=== PATIENT | female | born 1970 | race Caucasian/White ===

== ENCOUNTER 2017-02-15 07:56 | Observation (INO) | payer OTHER ==
--- NOTE | ~2017-02-15 | EKG ---
PATIENT: JIAN GONZALEZ UNIT #: [id number] Ventricular Rate: 222 BPM Atrial Rate: 221 BPM QRS Duration: 70 ms Q-T Interval: 196 ms QTC Calculation(Bezet): 376 ms Calculated R [place]: 84 degrees Calculated T [place]: -115 degrees Diagnosis Line: Supraventricular tachycardia Diagnosis Line: Marked ST abnormality, possible inferior Diagnosis Line: subendocardial injury Diagnosis Line: Marked ST abnormality, possible anterolateral Diagnosis Line: subendocardial injury Diagnosis Line: Abnormal ECG Diagnosis Line: When compared with ECG of 29-JUL-2016 09:07, Diagnosis Line: Vent. rate has increased BY 135 BPM Diagnosis Line: ST now depressed in Inferior leads Diagnosis Line: ST now depressed in Anterolateral leads Diagnosis Line: T wave inversion now evident in Inferior leads Diagnosis Line: T wave inversion now evident in Anterolateral Diagnosis Line: leads Diagnosis Line: Confirmed by LIBERTAD PAUL MD ([id number]) on 02/15/2017 Diagnosis Line: 10:16:23 PM INTERPRETING MD: HUMBERTO BLAIR
--- NOTE | ~2017-02-15 | EKG ---
PATIENT: JIAN GONZALEZ UNIT #: [id number] Ventricular Rate: 93 BPM Atrial Rate: 93 BPM P-R Interval: 158 ms QRS Duration: 82 ms Q-T Interval: 354 ms QTC Calculation(Bezet): 440 ms P [place]: 67 degrees Calculated R [place]: 68 degrees Calculated T [place]: 53 degrees Diagnosis Line: Normal sinus rhythm Diagnosis Line: Nonspecific ST abnormality Diagnosis Line: Abnormal ECG Diagnosis Line: No previous ECGs available Diagnosis Line: Confirmed by LIBERTAD PAUL MD ([id number]) on 02/15/2017 Diagnosis Line: 10:16:37 PM INTERPRETING MD: HUMBERTO BLAIR
--- NOTE | ~2017-02-15 | EKG ---
PATIENT: JIAN GONZALEZ UNIT #: [id number] Ventricular Rate: 72 BPM Atrial Rate: 72 BPM P-R Interval: 172 ms QRS Duration: 82 ms Q-T Interval: 370 ms QTC Calculation(Bezet): 405 ms P [place]: 42 degrees Calculated R [place]: 57 degrees Calculated T [place]: 31 degrees Diagnosis Line: Normal sinus rhythm Diagnosis Line: Normal ECG Diagnosis Line: When compared with ECG of 15-FEB-2017 06:25, Diagnosis Line: (unconfirmed) Diagnosis Line: ST no longer depressed in Anterior leads Diagnosis Line: Confirmed by LIBERTAD PAUL MD ([id number]) on 02/15/2017 Diagnosis Line: 10:29:31 PM INTERPRETING MD: HUMBERTO BLAIR
--- NOTE | ~2017-02-15 | TH ---
Unit #: [id number] #: [id number] Patient: JIAN GONZALEZ [id number] [address] [address] [id number] I MR#: [id number] NAME: JIAN GONZALEZ : 1970 SEX: F STUDY DATE/TIME: UNIT: C3A PCU ROOM: [facility] STUDY DESCRIPTION: Nuclear Study Attending Physician: Samantha Harris M.D. Primary Care Physician: Erica Longoria M.D. CARDIOLOGY REPORT EXAM Exercise Cardiolite Stress Test - Nuclear Portion DESCRIPTION Using technetium 99m labeled Cardiolite, rest and stress SPECT images were obtained. Multiple SPECT images were obtained in various views including horizontal and vertical long axis and short axis views of the left ventricle. Images were obtained by gated SPECT method. The patient was administered 11.07 mCi of Cardiolite at rest. The patient was administered 35.6 mCi of Cardiolite at peak exercise. Total exercise time is 6 minutes 18 seconds. On the stress images, there is an extremely small area of mild decreased isotope activity anteroapically. The rest images show normal perfusion. Comparing rest and stress images, an extremely small area of possible stress-induced ischemia involving the anteroapical wall of the left ventricle cannot be ruled out. The left ventricular ejection fraction is calculated to be 69%. There is no focal wall motion abnormality seen. CONCLUSION 1. An extremely small area of possible stress-induced ischemia involving the anteroapical wall of the left ventricle cannot be ruled out. 2. The left ventricular ejection fraction is calculated to be 69%. 3. There is no focal wall motion abnormality seen. 4. If the patient has any symptoms, will consider cardiac catheterization. Dictated by... Julius Rachel TD: 02/17/2017 06:14 JOB #: [id number] Unit #: [id number] #: [id number] Patient: JIAN GONZALEZ CARDIOLOGY REPORT Page 1 of 1 X Samantha Harris MD <ELECTRONICALLY SIGNED> 05/28/17 1429 CARDIOLOGY REPORT
--- NOTE | ~2017-02-15 | HP ---
Unit #: [id number] #: [id number] Patient: JIAN GONZALEZ [id number] [address] [place], [place] [address] [id number] I MR#: [id number] NAME: JIAN GONZALEZ ROOM: 325 Age: 46 Sex: F Admission Date: 02/15/2017 : 1970 Attending Physician: Samantha Harris M.D. Primary Care Physician: Erica Longoria M.D. HISTORY AND PHYSICAL HISTORY OF PRESENT ILLNESS This is a 46-year-old female who presented to the emergency room with a complaint of chest pain and palpitations. The patient states that she awakened this morning with a fast heart rate. She had left anterior chest pain with heaviness that radiated into her shoulder and into her mid back. She was positive for shortness of breath. No diaphoresis or nausea. She came into the emergency room for evaluation where she was found to be in supraventricular tachycardia with a rate of 222 beats/minute. She was treated with 6 mg of Adenosine, followed by a 12 mg dose that converted her to normal sinus rhythm. Later in the morning, she developed another episode of SVT that was terminated using 12 mg of adenosine. She was hypokalemic with potassium of 3.3. According to the patient, she has had episodes of palpitations that has occurred off and on for awhile. According to the emergency room record she was here on 07/29/2017 and had an episode of SVT that was treated with adenosine. The patient was discharged home. She also had an episode in 2013. She was seen by Dr. Gray in 2012 for the same. At that time she was on adenosine. She had a Lexiscan Cardiolite stress test at that time that was normal. She has not since followed with cardiology. She reports chest pain that mostly occurs when she is doing her housework. It does relieve after an hour of rest. PAST MEDICAL HISTORY 1. Lexiscan Cardiolite stress test 04/10/2013 and showed no ischemia. Ejection fraction of 67%. 2. 2D echocardiogram 04/07/2013 showed an ejection fraction equal or greater than 55% with mild tricuspid regurgitation. 3. Paroxysmal supraventricular tachycardia. 4. Hyperlipidemia. 5. GERD. 6. Anxiety. 7. Questionable history of TIA. 8. Nonsmoker. PAST SURGICAL HISTORY Tubal ligation. SOCIAL HISTORY The patient is and is a housewife. She has never smoked. She denies illicit drug and alcohol use. FAMILY HISTORY Negative for coronary artery disease. Unit #: [id number] #: [id number] Patient: JIAN GONZAELZ ALLERGIES Penicillin. HOME MEDICATIONS Zantac 75 mg daily. REVIEW OF SYSTEMS CONSTITUTIONAL: Negative for fever or chills. Reports no weight gain or weight loss. HEENT: No headache and no visual changes. Difficulty with swallowing. No dizziness. CARDIOVASCULAR: Positive for chest pain and palpitations. Denies syncope and near syncope. No paroxysmal nocturnal dyspnea or orthopnea. RESPIRATORY: Has occasional dyspnea on exertion. No cough or hemoptysis. GASTROINTESTINAL: Negative for abdominal discomfort, nausea, or vomiting. No constipation. EXTREMITIES: Negative for all extremities. PHYSICAL EXAMINATION VITAL SIGNS: Blood pressure 118/71, heart rate 76, temperature 98.5, BMI 29. GENERAL: This is a very pleasant 46-year-old female who is in no acute respiratory distress. NEUROLOGIC: She is awake, alert and oriented. There is no focal weaknesses. NECK: Trachea is midline. No thyromegaly or lymphadenopathy. No jugular venous distention. HEART: S1 and S2 heart sounds are normal. No murmurs, no rubs, or clicks. Regular rate and rhythm. LUNGS: Clear to auscultation. There is no rales, rhonchi or wheezing. ABDOMEN: Soft, nontender with bowel sounds present. EXTREMITIES: Without leg edema. SKIN: Warm and dry. DIAGNOSTIC STUDIES LABORATORY STUDIES: Glucose 147, BUN 18, creatinine 0.7, sodium 140, potassium 3.3, magnesium is 1.8. CK total 65, MB 1.7, MB index 2.6. Troponin less than 0.05 to 0.22. TSH 0.82. White count 7.8, hemoglobin 12.8, hematocrit 38.8, platelet count is 270. IMAGING STUDIES: Chest x-ray shows no active disease. CARDIOVASCULAR STUDIES: Presenting electrocardiogram shows supraventricular tachycardia with a rate of [address] depression. Repeat electrocardiogram - normal sinus rhythm with a rate of [address] wave abnormality. IMPRESSION 1. Paroxysmal supraventricular tachycardia. 2. Hyperlipidemia. 3. Preserved left ventricular systolic function with ejection fraction of greater than 55%. 4. Hypokalemia. 5. Atypical chest pain. PLAN Unit #: [id number] #: [id number] Patient: JIAN GONZALEZ 1. The patient's PSVT has converted to normal sinus rhythm with use of adenosine. Will start the patient on beta-andriy for heart rate control. 2. Start on aspirin. 3. Obtain 2D echocardiogram to evaluate left ventricular systolic function. 4. Chest pain is atypical for ischemic heart disease. Will proceed with exercise Cardiolite stress test in a.m. to rule out coronary artery disease. 5. TSH is normal. 6. Fasting lipid profile will be obtained. Dictated by Liset HennessyPDeeRLeroy for Julius Rachel/mela TD: 02/16/2017 06:29 JOB #: [id number] CC: [facility], [facility]. HISTORY AND PHYSICAL Page 1 of 1 X Tariq Linder APRN X HISTORY AND PHYSICAL
--- NOTE | ~2017-02-15 | CR72 ---
[facility]. [facility] A Service of [facility] & [facility] RADIOLOGY TEXT RESULTS PATIENT: JIAN GONZALEZ LOCATION: [facility] 325-01 : [birth year] UNIT #: [id number] AGE: [address]: Samantha Harris MD SEX: F ORDER DR: [id number] [facility] [address] [facility]. [place], [place] [address] [id number] P MR#: [id number] Acc #: [id number] NAME: JIAN GONZALEZ : 1970 SEX: F STUDY DATE/TIME: 02/15/2017 6:34 UNIT: [facility] ROOM: STUDY DESCRIPTION: CR Chest Single View Portable Attending Physician: Sedrick Mcfarland M.D. Ordering Physician: Sedrick Mcfarland M.D. Primary Care Physician: Erica Longoria M.D. MEDICAL IMAGING REPORT This report is preliminary unless electronic signature is present EXAM Portable chest. HISTORY Chest pain. Heart racing for one day. FINDINGS Portable view of the chest was obtained and compared with 07/29/2016. The heart size and vascularity are normal. The lungs are clear. The bones are unremarkable. IMPRESSION No active disease. Dictated by... Ernst Waller M.D. THIS IS AN ELECTRONICALLY VERIFIED REPORT Ernst Waller M.D. at 02/15/2017 11:44 AM [place] TD: 02/15/2017 07:51 JOB #: [id number] MEDICAL IMAGING REPORT Page 1 of 1 COPY
--- NOTE | ~2017-02-15 | ST ---
Unit #: [id number] #: [id number] Patient: JIAN GONZALEZ [id number] [address] [address] [id number] I MR#: [id number] NAME: JIAN GONZALEZ : 1970 SEX: F STUDY DATE/TIME: 02/16/2017 UNIT: C3A PCU ROOM: [address] [place] [address] DESCRIPTION: Stress Test Attending Physician: Samantha Harris M.D. Primary Care Physician: Erica Longoria M.D. CARDIOLOGY REPORT All information was obtained via farm mechanic apprentice who was present during the entire test, nuclear imaging farm mechanic apprentice, who was able to speak [place]an. REASON FOR TESTING Palpitations, chest pain. DESCRIPTION Baseline EKG shows normal sinus rhythm, rate of 70 beats per minute. The patient exercised on the treadmill according to Girma protocol for a total of 6 minutes 18 seconds achieving 7.20 METs with a resting heart rate of 70 beats per minute and a peak heart rate of 146 beats per minute representing 84% of the maximum predicted heart rate. There were no ST segment changes suggestive of ischemia. At peak exercise, the patient did complain of left sided chest tightness and heaviness rated at approximately a 6 and increasing shortness of breath. This was increased in intensity. Therefore, the test was stopped. There was no ectopy noted during the test. IMPRESSION 1. Negative EKG portion of exercise Cardiolite. 2. No ST segment changes suggestive of ischemia. 3. However, the patient did experience, at peak exertion, left sided chest pain which was increasing in intensity, rated as a 6 out of 10, with some radiation into her left shoulder as well as worsening shortness of breath. The test was stopped secondary to this reason. The patient reports this pain was the pain that brought her in to the hospital; the same pain. The patient was sat down in the chart. No intervention was needed and she was chest pain free approximately three to four minutes into the recovery period. 4. The patient had a normal blood pressure response to exercise. Resting blood pressure was 113/72, marco antonio to a maximum blood pressure of 190/80. 5. Please correlate with nuclear imaging. Dictated by... Jennifer Gomez A.P.R.N. for Samantha Harris M.D. Unit #: [id number] #: [id number] Patient: GONZALEZJIAN WALLACE/cornelia TD: 02/17/2017 06:06 JOB #: [id number] CARDIOLOGY REPORT Page 1 of 1 X Jennifer Gomez APRN CARDIOLOGY REPORT
--- NOTE | ~2017-02-15 | HP ---
Unit #: [id number] #: [id number] Patient: JIAN GONZALEZ [id number] [address] [place], [place] [address] [id number] I MR#: [id number] NAME: JIAN GONZALEZ ROOM: 325 Age: 46 Sex: F Admission Date: 02/15/2017 : 1970 Attending Physician: Samantha Harris M.D. Primary Care Physician: Erica Longoria M.D. HISTORY AND PHYSICAL ADDENDUM The patient was admitted for chest pain. She underwent exercise Cardiolite stress testing today. This was reviewed per Dr. Harris and the patient's nuclear images show no evidence of exercise induced ischemia. Per Dr. Harris, the patient was deemed okay to discharge home today. She was advised to follow up with her primary care physician in one to two weeks. She will follow up with Dr. Harris in the office on April the at 12:30 p.m. The patient did have some medication changes. She will be sent home with baby aspirin, atorvastatin 10 mg p.o. q.h.s. and her metoprolol will be changed to 50 mg one tab p.o. b.i.d. The patient was educated the importance of lifestyle modification, diet and exercise, as well as the fact that if she continues to have any chest pain she needs to notify Dr. Harris's office. The next step would be proceeding with cardiac catheterization. This was all explained to the patient via parts interpreter phone and the patient verbalized understanding. Dictated by Denny Mora/valery TD: 02/16/2017 14:01 JOB #: [id number] HISTORY AND PHYSICAL Page 1 of 1 X Jennifer Gomez APRN X HISTORY AND PHYSICAL
--- NOTE | ~2017-02-15 | EKG ---
PATIENT: JIAN GONZALEZ UNIT #: [id number] Ventricular Rate: 76 BPM Atrial Rate: 76 BPM P-R Interval: 176 ms QRS Duration: 80 ms Q-T Interval: 386 ms QTC Calculation(Bezet): 434 ms P [place]: 37 degrees Calculated R [place]: 52 degrees Calculated T [place]: 23 degrees Diagnosis Line: Normal sinus rhythm Diagnosis Line: Normal ECG Diagnosis Line: When compared with ECG of 15-FEB-2017 13:49, Diagnosis Line: No significant change was found Diagnosis Line: Confirmed by LIBERTAD PAUL MD ([id number]) on 02/17/2017 Diagnosis Line: 7:51:58 PM INTERPRETING MD: HUMBERTO BLAIR
[2017-02-15 06:55] LABS: POC - CKMB <1.0 ng/mL (0.0-7.9); POC - TROPONIN <0.05 ng/mL (<=0.05)
[2017-02-15 07:06] LABS: BASOPHIL% 0.6 % (0-2.5); EOSINOPHIL# 0.1 X10e3 (0-0.7); EOSINOPHIL% 1.1 % (0.0-7.0); HEMATOCRIT 38.8 % (35.0-45.0); HEMOGLOBIN 12.8 gm/dL (12.0-16.0); LYMPHOCYTE# 2.3 X10e3 (1.0-3.5); LYMPHOCYTE% 29.1 % (17.0-45.0); MEAN CELL VOLUME 78.3 FL (83-96); MEAN CORPUSCULAR HEMOGLOBIN 25.7 PG (28-34); MEAN CORPUSCULAR HGB CONC 32.9 g/dL (30-36); MONOCYTE# 0.7 X10e3 (0-1.0); NEUTROPHIL# 4.7 X10e3 (1.5-7.1); NEUTROPHIL% 60.2 % (40-75); PLATELET COUNT 270 X10e3 (140-420); RED BLOOD COUNT 4.96 X10e (3.90-5.30); RED CELL DISTRIBUTION WIDTH 14.7 % (11.0-15.5); WHITE BLOOD COUNT 7.8 X10e3 (4.0-10.5)
[2017-02-15 07:10] LABS: DIFF IND NO
[2017-02-15 07:17] LABS: PARTIAL THROMBOPLASTIN TIME 30.1 SECONDS (23.5-31.3); PROTHROMBIN TIME (PATIENT) 10.2 SECONDS (9.6-11.5)
[2017-02-15 07:39] LABS: ALBUMIN SERUM 3.7 g/dL (3.5-5.0); ALKALINE PHOSPHATASE 85 U/L (32-92); ALT (SGPT) 18 U/L (10-40); AST (SGOT) 19 U/L (10-42); BILIRUBIN,TOTAL 0.5 mg/dL (0.2-2.0); BLOOD UREA NITROGEN 18 mg/dL (9-23); BUN/CREATININE RATIO 25.71; CALCIUM SERUM 9.1 mg/dL (8.4-10.2); CARBON DIOXIDE 19 mmol/L (22-31); CHLORIDE 110 mmol/L (100-111); CREATININE SERUM 0.7 mg/dL (0.6-1.4); GLOM FILT RATE Estimated 103.2 mL/min (>60); GLUCOSE FASTING 147 mg/dL (70-110); MAGNESIUM 1.8 mg/dL (1.6-3.0); POTASSIUM 3.3 mmol/L (3.5-5.1); PROTEIN TOTAL SERUM 7.4 g/dL (6.0-8.3); SODIUM 140 mmol/L (135-145)
[2017-02-15 07:40] LABS: BILIRUBIN, DIRECT <0.1 mg/dL (0.0-0.2); BILIRUBIN,INDIRECT 0.4 mg/dL (0.0-0.9)
[~2017-02-15 07:56] MED LIST: ACETAMINOPHEN PO; ASPIRIN81 MG PO; BUSPAR PO; CARTIA XT120 MG PO; CELEXA20 MG PO; FAMOTIDINE PO; FAMOTIDINE20 M1 PO; MULTIVITAMIN1 UDCAP PO; PROTONIX PO; SENNA S TABLET1 TAB PO; VISTARIL PO; ZOCOR20 MG PO
[2017-02-15 09:48] LABS: POC - CKMB <1.0 ng/mL (0.0-7.9); POC - TROPONIN <0.05 ng/mL (<=0.05)
[2017-02-15] MEDS ORDERED: ZANTAC PO (10:09)
[2017-02-15] MEDS ORDERED: ZOLOFT PO (11:30)
[2017-02-15 15:06] LABS: %MB 2.6 % (0.0-4.0); MB 1.7 ng/ml
[2017-02-15 20:50] LABS: %MB 2.6 % (0.0-4.0); MB 1.8 ng/ml
[2017-02-16 07:15] LABS: CHOLESTEROL 192 mg/dL (0-200); HDL CHOLESTEROL 29 mg/dL (35-95); LDL CHOLESTEROL 117 mg/dL (-130); LDL/HDL RATIO 4 RATIO (0-4); TRIGLYCERIDES 229 mg/dL (10-160)
[2017-02-16] MEDS ORDERED: LOPRESSOR PO (15:09)
[2017-02-16] MEDS ORDERED: LIPITOR PO (15:10)
[2017-02-16] MEDS ORDERED: ASPIRIN81 M2 PO (15:10)
== END 2017-02-16 16:45 | disposition home or self-care (01) ==
LOC: CED 07:56 → CEDOF 10:05 → C3A PCU 11:24
PROVIDERS: Emergency Medicine; Internal Medicine Cardiovascular Disease
DX: I47.1 Supraventricular tachycardia (principal); E78.5 Hyperlipidemia, unspecified; E87.6 Hypokalemia; R07.89 Other chest pain; I07.1 Rheumatic tricuspid insufficiency; Z88.0 Allergy status to penicillin; Z79.82 Long term (current) use of aspirin
CPT/HCPCS: 36415; 71010; 78452; 80048; 80061; 80076; 82550; 82553; 83735; 84443; 84484; 85025; 85610; 85730; 93005; 93017; 93306; 96361; 96372; 96374; 96376; 99285; A9500; G0378; J0153; J1650